=== PATIENT | female | born 1990 | race Caucasian/White ===

== ENCOUNTER 2017-01-13 23:33 | Emergency (ER) | payer SELFPAY ==
[2017-01-13] MEDS ORDERED: Ketorolac 30 MG/ML SDV IM ONE (23:54)
[2017-01-13] MEDS ORDERED: traMADol 50 MG Tab PO ONE ×2 (23:57→23:59)
--- NOTE | 2017-01-14 00:03 | EDM.PDOC ---
ED HPI GENERAL MEDICAL PROBLEM - General Chief Complaint: ENT Problem Stated Complaint: ABSCESS TOOTH Time Seen by Provider: 01/13/17 23:33 Source of Information: Reports: Patient History Limitations: Reports: No Limitations - History of Present Illness INITIAL COMMENTS - FREE TEXT/NARRATIVE: 26 y.o.w.f came to the ed due to pain at her left upper post tooth. Pt cracked her tooth a few weeks ago but her tooth ache started last thursday. She was seen by her PMD, Amoxicillin and vicodin were prescribed. Pain do not help. Pt did not take motrin. No other acute medical issues. Pt denied tobacco use. Onset Date: 01/09/17 Onset Time: 20:00 Duration: Day(s): Location: Reports: Face Quality: Reports: Ache, Burning, Dull, Stabbing, Throbbing Severity: Moderate Improves with: Reports: Rest Worsens with: Reports: Cold Therapy, Movement Context: Reports: Trauma (broken tooth) Associated Symptoms: Reports: No Other Symptoms Treatments HOUSE [employer]: Reports: NSAIDS, Other (see below) (vicodin) dentl Pain Score (Numeric/FACES): 10 - Related Data Allergies Allergy/AdvReac Type Severity Reaction Status Date / Time No Known Allergies Allergy Verified 01/13/17 23:57 Home Meds: Home Meds Amoxicillin 500 mg PO TID 01/13/17 [History] Hydrocodone/Acetaminophen [Hydrocodon-Acetaminophen 5-325] 1 each PO Q4HR PRN [History] ED ROS ENT - Review of Systems Review Of Systems: See Below Constitutional: Reports: No Symptoms HEENT: Reports: Throat Pain Respiratory: Reports: No Symptoms Cardiovascular: Reports: No Symptoms Endocrine: Reports: No Symptoms GI/Abdominal: Reports: No Symptoms : Reports: No Symptoms Musculoskeletal: Reports: No Symptoms Skin: Reports: No Symptoms Neurological: Reports: No Symptoms Psychiatric: Reports: No Symptoms Hematologic/Lymphatic: Reports: No Symptoms Immunologic: Reports: No Symptoms ED EXAM, ENT - Physical Exam Exam: See Below Exam Limited By: No Limitations General Appearance: Alert, WD/WN, Mild Distress Eye Exam: Bilateral Eye: Normal Inspection Ears: Normal External Exam Nose: Normal Inspection Mouth/Throat: Dental Trauma (upper 3rd molar) Head: Atraumatic, Normocephalic Neck: Normal Inspection, Supple, Non-Tender, Full Range of Motion Respiratory/Chest: No Respiratory Distress, Lungs Clear Cardiovascular: Normal Peripheral Pulses, Regular Rate, Rhythm GI/Abdominal: Normal Bowel Sounds, Soft (Female) Exam: Deferred Rectal (Female) Exam: Deferred Back: Normal Inspection, Full Range of Motion Extremities: Normal Inspection Neurological: Alert, Oriented, CN II-XII Intact, Normal Cognition, Normal Gait Psychiatric: Normal Affect, Normal Mood Skin: Warm, Dry, Intact, Normal Color, No Rash Lymphatic: No Adenopathy Course - Vital Signs Text/Narrative:: 26 y.o.w.f came to the ed due to pain at her left upper post tooth. Pt cracked her tooth a few weeks ago but her tooth ache started last thursday. She was seen by her PMD, Amoxicillin and vicodin were prescribed. Pain do not help. Pt did not take motrin. No other acute medical issues. Pt denied tobacco use. PE: poor dentition, broken upper left 3rd molar Impression: Gingivitis, poor dentition, broken upper left 3rd molar Tx: Toradol i.m. Ultram Reexam: Improved Plan: D/C with instructions Last Recorded V/S: Last Vital Signs Temp 36.6 C 01/13/17 23:40 Pulse 75 01/13/17 23:40 Resp 18 01/13/17 23:40 BP 129/76 01/13/17 23:40 Pulse Ox 100 01/13/17 23:40 - Orders/Labs/Meds Meds: Medications Discontinued Medications Generic Name Dose Route Start Last Admin Trade Name Naifq PRN Reason Stop Dose Admin Ketorolac Tromethamine 30 mg 01/13/17 23:54 01/14/17 00:01 Toradol IM 01/13/17 23:55 30 mg ONETIME ONE Administration Tramadol HCl 50 mg 01/13/17 23:57 Ultram PO 01/13/17 23:58 ONETIME ONE Departure - Departure Time of Disposition: 23:59 Disposition: Home, Self-Care 01 Condition: Good Clinical Impression: Toothache, Gingivitis - Discharge Information Instructions: [facility] Referrals: PCP,None [Primary Care Provider] - Forms: ED Department Discharge Additional Instructions: Please take Motrin for mod pain, Ultram for severe pain, cont amoxicillin, please f/u with a dentist, come back if your symptoms get worse acutely
== END 2017-01-14 00:15 | disposition home or self-care (01) ==
LOC: FB.ED 23:33
DX: K05.10 Chronic gingivitis, plaque induced (principal); K03.81 Cracked tooth
CPT/HCPCS: 96372; 99282; A9270; J1885